=== PATIENT | female | born 1965 | race Caucasian/White ===

== ENCOUNTER 2021-10-07 06:25 | Inpatient (IN) | payer OTHER ==
[2021-10-05 11:56] LABS: INR 0.99 (0.9-1.15); Partial Thromboplastin Time 26.5 sec (23.6-33.0)
[~2021-10-07] VITALS: Ht 162.6 cm; Wt 139.0 kg
[~2021-10-07 06:25] MED LIST: AMLO-496 PO; CHOL20007 OR; LOSA-39 PO
[2021-10-07] MEDS ORDERED: TRANEXAMIC ACID 20 ML ONE (06:55)
[2021-10-07] MEDS: VANCOMYCIN HCL 1000 MG VL ONE ×2 (06:56→10:55)
[2021-10-07] MEDS ORDERED: TETRACAINE 1% INJ 2 ML VIAL IJ ONE (07:25)
[2021-10-07] MEDS ORDERED: ceFAZolin 1GM/50ML 100 ML IV ONE (07:27)
[2021-10-07] MEDS ORDERED: MORPHINE SULF PF 2 MG/2 ML SYRG ONE (07:27)
[2021-10-07] MEDS ORDERED: fentaNYL CITRATE 100 MCG/2 ML VL ONE ×2 (07:32→08:54)
[2021-10-07] MEDS ORDERED: MIDAZOLAM HCL 2MG/2ML 2ml VIAL (1mg/ml) ONE (07:32)
[2021-10-07] MEDS ORDERED: LIDOCAINE 2% (LOCAL ANESTH.) PF 5ml SDV ONE (07:49)
[2021-10-07] MEDS ORDERED: ONDANSETRON HCL 4 MG/2 ML VIAL ONE (07:49)
[2021-10-07] MEDS ORDERED: PROPOFOL 10 MG/ML 20 ML IV ONE ×2 (07:49→11:50)
[2021-10-07] MEDS: ONDANSETRON HCL 4 MG/2 ML VIAL IV ONE ×2 (10:30→11:45)
[2021-10-07] MEDS ORDERED: HYDROmorphone HCL 2 MG/ML VL IV PRN ×2 (10:30→11:30)
[2021-10-07] MEDS ORDERED: KETOROLAC TROMETH 30 MG/ML 1ML VIAL IV PRN (10:30)
[2021-10-07] MEDS ORDERED: diphenhdrAMINE HCL 50 MG/1 ML VL IV PRN (10:30)
[2021-10-07] MEDS ORDERED: NALBUPHINE HCL 10 MG/1ml INJECTION SUBCUT ONE (10:30)
[2021-10-07] MEDS ORDERED: DexAMETHasone SOD PHOS 10MG/1ML VIAL INJ IV PRN (10:30)
[2021-10-07] MEDS ORDERED: NALOXONE HCL 0.4 MG/ML VIAL IV PRN (10:30)
[2021-10-07] MEDS ORDERED: oxyCODONE HCL 5MG TAB PO PRN (11:30)
[2021-10-07] MEDS ORDERED: ONDANSETRON HCL 4 MG/2 ML VIAL IV PRN (11:30)
[2021-10-07] MEDS: SODIUM CHLORIDE 0.9% 1,000 ML IV SCH ×2 (11:57→21:46)
[2021-10-07] MEDS: ACETAMINOPHEN 325 MG TAB PO SCH ×2 (12:00→18:00)
[2021-10-07] MEDS: KETOROLAC TROMETH 30 MG/ML 1ML VIAL IV SCH ×3 (12:00→18:00)
[2021-10-07] MEDS ORDERED: PROMETHAZINE HCL 25 MG/ML 1ML IV ONE (12:15)
[2021-10-07] MEDS ORDERED: PROMETHAZINE HCL 25 MG/ML 1ML ONE (12:21)
[2021-10-07] MEDS: ceFAZolin 2 GM in D5W 5% 100 ML IV SCH ×2 (14:17→21:46)
[2021-10-07 15:07] VITALS: BP 109/51
[2021-10-07] MEDS: oxyCODONE HCL 5MG TAB PO PRN (16:53)
[2021-10-07 17:00] VITALS: BP 109/51
[2021-10-07] MEDS: ONDANSETRON HCL 4 MG/2 ML VIAL IV PRN (17:23)
[2021-10-07 20:00] VITALS: BP_SYST 111; BP_DIAS 64; BP_DIAS 69
[2021-10-07 21:00] VITALS: BP 106/68
[2021-10-07 22:00] VITALS: BP 103/55
[2021-10-07 23:00] VITALS: BP 110/65
[2021-10-08] VITALS (11 sets, daily range): BP systolic 98–125; BP diastolic 57–72
[2021-10-08] MEDS: ONDANSETRON HCL 4 MG/2 ML VIAL IV PRN (04:36)
[2021-10-08] MEDS: SODIUM CHLORIDE 0.9% 1,000 ML IV SCH ×2 (04:36→11:58)
[2021-10-08] MEDS: oxyCODONE HCL 5MG TAB PO PRN (04:37)
[2021-10-08] MEDS: ACETAMINOPHEN 325 MG TAB PO SCH ×3 (06:00→11:59)
[2021-10-08 06:26] LABS: Basophils # (auto) 0 10 ^3/uL (0-0.2); Basophils % (auto) 0.5 % (0.0-2.0); Eosinophils # (auto) 0 10 ^3/uL (0-0.8); Eosinophils % (auto) 0.6 % (0.0-7.0); Hematocrit 37.9 % (36.0-46.0); Hemoglobin 12.5 g/dL (12.2-16.2); Lymphocytes # (auto) 0.9 10 ^3/uL (0.4-5.4); Lymphocytes % (auto) 10.8 % (10.0-50.0); Mean Corpuscular Hemoglobin 28.5 pg (28.0-32.0); Mean Corpuscular Hgb Conc. 32.8 g/dL (32.0-36.0); Monocytes # (auto) 0.8 10 ^3/uL (0-1.3); Monocytes % (auto) 10.2 % (0.0-12.0); Neutrophils # (auto) 6.3 10 ^3/uL (1.6-8.6); Neutrophils % (auto) 77.9 % (37.0-80.0); Nucleated Red Blood Cells % 0.1 %; Red Blood Cells 4.36 10^6/uL (4.0-5.20); Red Cell Distribution Width 13.9 % (11.8-14.3); White Blood Cell 8.1 10^3/uL (4.4-10.8)
[2021-10-08 06:34] LABS: Potassium 4.2 mmol/L (3.5-5.1)
[2021-10-08] MEDS: KETOROLAC TROMETH 30 MG/ML 1ML VIAL IV SCH ×3 (06:35→11:58)
[2021-10-08] MEDS ORDERED: APIXABAN 2.5 MG TAB PO SCH (10:00)
[2021-10-09] MEDS ORDERED: CHOLECALCIFEROL (VITD3) 2,000 UNIT CAP/TAB PO SCH (10:00)
[2021-10-09] MEDS ORDERED: amLODIPine BESYLATE 5 MG TAB PO SCH (10:00)
[2021-10-09] MEDS ORDERED: LOSARTAN POTASSIUM 50 MG TAB PO SCH (10:00)
== END 2021-10-08 17:45 | disposition home or self-care (01) | DRG 470 ==
LOC: SUR 06:25 → OVERFLOW 11:28 → CENTRAL 15:07 → TELE-CENTR 16:02
PROVIDERS: ADMIT Orthopaedic Surgery; ATTEND Orthopaedic Surgery
PROC: 0SRB06Z Replacement of Left Hip Joint with Oxidized Zirconium on Polyethylene Synthetic Substitute, Open Approach (ICD-10-PCS; principal; 2021-10-07 07:28)
DX: M16.12 Unilateral primary osteoarthritis, left hip (principal); Z68.41 Body mass index [BMI] 40.0-44.9, adult; E66.01 Morbid (severe) obesity due to excess calories; Z20.822 Contact with and (suspected) exposure to COVID-19; I10 Essential (primary) hypertension; Z88.1 Allergy status to other antibiotic agents
CPT/HCPCS: 36415; 72170; 80048; 85025; 85610; 85730; 86850; 86900; 86901; G0378; J0690; J1885; J2001; J2250; J2405; J2704; J7060

== ENCOUNTER 2025-08-14 09:48 | Day surgery (SDC) | payer OTHER ==
[~2025-08-14] VITALS: Ht 160 cm; Wt 113.4 kg
[~2025-08-14 09:48] MED LIST changes: -AMLO-496 PO; +AMLO1TAB23 PO; -LOSA-39 PO; +LOSA-535 PO; +MAGN100C5 PO
[2025-08-14] MEDS ORDERED: LIDOCAINE 1% INJ PF 5ML AMP IV ONE (09:49)
[2025-08-14] MEDS ORDERED: METOCLOPRAMIDE HCL 5MG/ml INJ 2ml VIAL ONE (11:13)
[2025-08-14] MEDS ORDERED: ONDANSETRON HCL 4 MG/2 ML VIAL ONE (11:13)
[2025-08-14] MEDS ORDERED: PROPOFOL 10 MG/ML 20 ML IV ONE (11:14)
[2025-08-14 11:30] VITALS: PULSE 75; RESP 20; TEMP 98.1
--- NOTE | 2025-08-14 11:30 | DVHHP2 ---
GI H&P Pre-Op Assessment Date: 08/14/25 Chief complaint: colon cancer screening HPI: per clinic note Past medical history: per clinic note Past surgical history: per clinic note Family history: per clinic note Physical exam: General: NAD, AAOX3 HEENT: PERRL, no scleral icterus, normal hearing, gums without lesions or bleeding, oropharynx clear without erythema or exudate. Neck: Supple without enlargement of the thyroid, or lymphadenopathy. Chest: Normal size and shape, no tenderness, lung estrada clear to auscultation and percussion, nonlabored breathing. Heart: RRR, no murmur Abdomen: non-distended, no tenderness to palpation, +BS, no hepatosplenomegaly Extremities: no edema Neurological: CN II-XII intact, sensation intact in all extremities, 5+ strength in all extremities Skin: No rashes, No jaundice Assessment: - colon cancer screening Plan: - Colonoscopy - Risks (bleeding, infection, perforation, reaction to sedation medications and cardiopulmonary arrest) and benefit of the procedure were explained to patient. Patient agrees to undergo the procedure. SHELDON WEBB MD Aug 14, 2025 11:30
--- NOTE | 2025-08-14 11:32 | DVHOP2 ---
Operative Report DATE OF OPERATION: 08/14/25 PROCEDURE: Colonoscopy. PREOPERATIVE INDICATION: The patient is a 60 -year-old female undergoing colonoscopy for colon cancer screening. POSTOPERATIVE DIAGNOSES: 1. 4 mm transverse colon polyp was removed hot snare and retrieved. 2. 2 mm transverse colon polyp was removed with cold biopsy forceps. 3. Moderate diverticulosis mostly in the left colon. PROCEDURE PERFORMED BY: Wayne Pepe M.D. SCOPE: Olympus videocolonoscope. ASA CLASS: 3 PREOPERATIVE MEDICATIONS: MAC with [employer] PROCEDURE IN DETAIL: After obtaining an informed consent, the patient was placed on left lateral decubitus position. She was then sedated with the above medications. A rectal examination was performed that was normal. The colonoscope was then passed through the anus into the rectosigmoid and through the descending, transverse, and ascending colon up to the cecum with visualization of the appendiceal orifice, base of the cecum and the ileocecal valve. A 4 mm transverse colon polyp was removed hot snare and retrieved. A 2 mm transverse colon polyp was removed with cold biopsy forceps. There was moderate diverticulosis mostly in the left colon. The colonoscope was then withdrawn. The patient tolerated the procedure well without difficulty. WITHDRAWAL TIME: 8 minutes QUALITY OF THE PREP: [place] Bowel Prep score: 5 COMPLICATIONS : None SPECIMENS: Colon polyps DISPOSITION: D/C to home PLAN: 1. Repeat colonoscopy base on biopsy result WAYNE PEPE MD Aug 14, 2025 11:32
--- NOTE | 2025-08-14 11:32 | DVHDS2 ---
Physician Discharge Progress N Final Diagnosis: Colon polyps, diverticulosis Operations or Procedures: Operations or Procedures Colonoscopy with hot snare polypectomy Condition on Discharge: Good Disposition: Home Discharge Instructions: Diet: Regular Activity: No Restrictions, As Tolerated Medications: resume previous home medications Follow Up Care: Discharge Statement: "Patient was advised to return to the ER or call 911 if any headaches, dizziness, shortness of breath, chest pain, abdominal pain, bleeding, fevers, or worsening of medical condition. Patient was counseled about treatment plan, medications, possible side effects, patientverbalized understanding. All questions were answered to the best of my ability. This discharge took greater then 30 minutes in planning, reviewing documentation, counseling the patient, and discussing with other team members." SHELDON WEBB MD Aug 14, 2025 11:32
[2025-08-14 12:00] VITALS: BP 111/60; PULSE 69; RESP 15; O2SAT 98
== END 2025-08-14 12:52 | disposition home or self-care (01) ==
LOC: GI 09:48
PROVIDERS: ATTEND Internal Medicine Gastroenterology
DX: R10.9 Unspecified abdominal pain (principal); K57.30 Diverticulosis of large intestine without perforation or abscess without bleeding; D12.3 Benign neoplasm of transverse colon; I10 Essential (primary) hypertension; Z79.899 Other long term (current) drug therapy; Z98.890 Other specified postprocedural states
CPT/HCPCS: 45380; 45385; 88305; J2405; J2704; J2765; J7030